=== PATIENT | female | born 1980 | race Caucasian/White ===

== ENCOUNTER 2020-01-27 08:28 | Emergency (ER) | payer MEDICAID ==
[~2020-01-27] VITALS: Ht 167.6 cm; Wt 90.7 kg
[2020-01-27 08:31] VITALS: BP 123/74
--- NOTE | 2020-01-27 08:37 | NUR ---
PT AMBULATED TO BED 7
--- NOTE | 2020-01-27 08:39 | NUR ---
39 YO FEMALE CO RIGHT SMALL TOE PAIN SINCE THIS MORNING. PT STATES THAT SHE STUBBED HER TOE ON A TOY. PT FEELS LIKE IT MAY BE FRACTURED. PAIN 02/24 NO PMH, NO RX
--- NOTE | 2020-01-27 08:40 | NUR ---
RAD AT BEDSIDE
[2020-01-27] MEDS ORDERED: IBUPROFEN 800 MG TAB PO ONE (09:35)
[2020-01-27 09:54] VITALS: BP 123/74
== END 2020-01-27 09:55 | disposition home or self-care (01) ==
LOC: MED 08:28
DX: S92.511A Displaced fracture of proximal phalanx of right lesser toe(s), initial encounter for closed fracture (principal); R03.0 Elevated blood-pressure reading, without diagnosis of hypertension; X58.XXXA Exposure to other specified factors, initial encounter; Y93.89 Activity, other specified; Y92.89 Other specified places as the place of occurrence of the external cause; Y99.8 Other external cause status
CPT/HCPCS: 73660; 99283; Q0092